=== PATIENT | female | born 1980 | race Two or more races ===

== ENCOUNTER 2024-04-08 18:44 | Emergency (ER) | payer MEDICAID, OTHER ==
[~2024-04-08] VITALS: Ht 162.6 cm; Wt 68.3 kg
[2024-04-08] MEDS ORDERED: AZIT-43 PO (20:14)
[2024-04-08] MEDS ORDERED: PRED20TA2 PO (20:14)
[2024-04-08] MEDS ORDERED: ACET500T58 PO (20:14)
--- NOTE | 2024-04-08 20:14 | ED.PDOC ---
History of Present Illness HPI Comments 43-year-old female presents to ER with complaints of flu-like symptoms x2 days. Patient reports that she has been experiencing productive cough with green phlegm, intermittent fever and intermittent body aches x2 days. Reports that she last took [id number]-yjawlzy NyQuil 2 hours prior to arrival to ER. Patient presents to ER afebrile, ambulatory, with steady gait, in no distress. She currently complains of 6/10 body aches pain, denying any other pain and reports exposure to sick contacts at work. 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 Family History Family History: Unknown Social History Smoker: Non-Smoker Alcohol: Denies ETOH Use Drugs: Denies Drug Use Lives In: Home Constitutional: See HPI EENTM: See HPI Respiratory: See HPI Cardiovascular: No Symptoms Reported Gastrointestinal: No Symptoms Reported Genitourinary: No Symptoms Reported Neurological: No Symptoms Reported Musculoskeletal: No Symptoms Reported Integumentary: No Symptoms Reported Allergic/Immunocompromised: others (DENIES) Hematologic/Lymphatic: No Symptoms Reported Endocrine: No Symptoms Reported Psychiatric: No symptoms Reported Physical Exam General Appearance: No Apparent Distress HEENT: Normal ENT Inspection, PERRL/EOMI, Pharynx Normal, TMs Normal Neck: Full Range of Motion, Non-Tender, Normal Respiratory: Chest Non-Tender, Lungs Clear, No Accessory Muscle Use, No Respiratory Distress, Normal Breath Sounds Cardiovascular: No Murmur, No Gallop, Regular Rate/Rhythm Breast Exam: Deferred Gastrointestinal: NOT DONE Genitalia: Deferred Pelvic: Deferred Rectal: Deferred Extremities: Normal capillary refill, Normal range of motion Neurologic: Alert, 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 Was a procedure done?: No Sedation Sedation?: No Fever Differential Dx Differential Diagnosis: Pneumonia, Sepsis, Other (COVID-19) X-Ray, Labs, Meds, VS Vital Signs Date Time Temp Pulse Resp B/P (MAP) Pulse Ox O2 Delivery O2 Flow Rate FiO2 04/08/24 20:00 97 Room Air 0 04/08/24 18:55 99.3 103 16 126/86 (99) 97 Lab Test 04/08/24 20:01 Range/Units Influenza Type A Antigen Pending Influenza Type B Antigen Pending SARS-CoV-2 Antigen (Rapid) Negative NEGATIVE Influenza A reviewed- positive Influenza B reviewed - negative [place] reviewed - negative Patient tolerating p.o. intake well and in no distress during ER visit/prior to discharge Advised to drink plenty plenty fluids Advised to f/u with PCP in 1-2 days Patient verbalized understanding and agreeable with current plan of care Advised to return to ER immediately if symptoms worsen Time of 1ST Reevaluation: 19:54 Reevaluation 1ST: N/A Patient Education/Counseling: Diagnosis, Treatment, Prognosis, Need For Follow Up Family Education/Counseling: No Family Present Departure 1 Departure Time of Disposition: 20:12 Impression: Primary Impression: Upper respiratory infection Qualified Codes: J06.9 - Acute upper respiratory infection, unspecified Additional Impression: Influenza A Disposition: 01 HOME / SELF CARE / HOMELESS Condition: Stable e-Prescriptions Oseltamivir Phosphate (Tamiflu) 75 Mg Cap 1 CAP PO BID for 5 Days, #10 CAP 0 Refills Prov: IVAN BLAKE 04/08/24 Prednisone (Prednisone) 20 Mg Tab 20 MG PO BID for 5 Days, #10 TAB 0 Refills Prov: IVAN BLAKE 04/08/24 Acetaminophen (Acetaminophen) 500 Mg Tab 500 MG PO Q4HPRN, #30 TAB 0 Refills Prov: IVAN BLAKE 04/08/24 Azithromycin (Azithromycin) 250 Mg Tab 250 MG PO DAILY MDD 500 for 5 Days, #6 TAB 0 Refills 2 TABLETS ORALLY ON DAY ONE, THEN 1 TABLET ORALLY DAILY FOR 4 DAYS Prov: IVAN BLAKE 04/08/24 Discharged With: Self Critical Care Note Critical Care Time?: No Stability Stability form required: No Heart Score Heart Score: Heart Score Response (Comments) Value History N/A 0 EKG N/A 0 Age N/A 0 Risk Factors N/A 0 Troponin N/A 0 Total 0 IVAN BLAKE Apr 08, 2024 20:14
[2024-04-08 21:35] LABS: COVID19 ANTIGEN SOFIA FIA NEGATIVE (NEGATIVE)
[2024-04-08 21:39] LABS: Rapid Influenza A Positive (Negative); Rapid Influenza B Negative (Negative)
[2024-04-08] MEDS ORDERED: OSEL75CA5 PO (21:41)
[2024-04-08 22:04] VITALS: BP 127/88; PULSE 99; RESP 16; TEMP 99.7; O2SAT 97
== END 2024-04-08 22:07 | disposition home or self-care (01) ==
LOC: ER 18:44
DX: J10.1 Influenza due to other identified influenza virus with other respiratory manifestations (principal); Z20.822 Contact with and (suspected) exposure to COVID-19; Z98.890 Other specified postprocedural states
CPT/HCPCS: 36415; 87426; 87804

== ENCOUNTER 2024-11-01 13:45 | Emergency (ER) | payer MEDICAID ==
[~2024-11-01] VITALS: Ht 160 cm; Wt 81.8 kg
[~2024-11-01 13:45] MED LIST: ACET500T58 PO; AZIT-43 PO; OSEL75CA5 PO; PRED20TA2 PO
--- NOTE | 2024-11-01 14:04 | ED.PDOC ---
GI ASSESSMENT HPI Comments HPI: 44 year old female presents to the emergency department via EMS with a chief complaint of nausea/vomiting/diarrhea onset today (11/01/24). Per EMS, patient was donating plasma when she began experiencing N/V/D, 911 was called. Upon EMS arrival, patient was bradycardiac, HR 30s, hypotensive with BP 90/52, 500 mL fluids was given, HR increased to 45, BP increased to 100/62. In route to ED, BP dropped to 87/43, another 500 mL fluids was given, BP improved to 111/72, Atropine was given prior to ED arrival. Patient states her last plasma donation was on Monday, has donating 3 times total. Patient states had no symptoms prior to donation, in the process she began experiencing nausea/vomiting about 5 episodes, 1 episode of yellow diarrhea. Patient also states she is on her menstrual cycle, has been experiencing cramps due to menstrual. No other symptoms or modifying factors present at this time. Initial Vitals BP: 114/79 HR: 100 RR: 18 O2: 97% Temp: 98.8 F Past Medical History: bradycardia, hypotension Past Surgical History: x2 Social History: Denies ETOH, smoking, and drug use. Medications: Denies Allergies: NKDA HPI: Poor Historian. REVIEW OF SYSTEMS: CONSTITUTIONAL: Denies acute: fever, diaphoresis, chills, HEAD: Denies acute: headache, photophobia Eyes: Denies acute: Double vision, vision loss, eye pain, eye discharge. EARS: Denies acute: tinnitus, hearing loss, ear discharge, ear pain, THROAT: Denies acute: sore throat, swelling, difficulty swallowing , pain with swallowing, change in voice. NECK: Denies acute: neck pain, neck swelling, stiff neck. HEART: Denies acute : chest pain, palpitations, LUNGS: Denies acute: SOB, wheezing, cough, hemoptysis ABDOMEN: Denies acute: abdominal pain, melena , hematemesis, hematochezia SKIN: Denies acute: rash, redness, lesions, itchiness. EXTREMITIES: Denies acute: calf pain, numbness, tingling, weakness, denies pain in extremity. Denies acute: Low back pain. Neuro: Denies acute: focal neurological deficit, motor or sensory focal neurological deficit, tremors, seizure like activity, confusion, dizziness, change in mental status, loss of bowel or bladder function, cauda equina like symptoms. : Denies acute: dysuria, hematuria, flank pain, increase in urinary frequency. PSYCH: Denies acute: hallucination, suicidal ideation, homicidal ideation. FEMALE: Denies acute: abnormal vaginal bleeding, foul odor, unusual discharge. PHYSICAL EXAM: General: ----no---acute distress, awake and alert. Head: normocephalic, atraumatic. Neck: supple, trachea is midline, no swelling. Throat: Normal phonation. Eyes:, no erythema, no purulent discharge, no proptosis, no icterus. Heart: regular rate, regular rhythm, no significant murmur appreciated. Lungs: no apparent respiratory distress, Able to speak in full sentences. No wheezing, no rhonchi, no crackles. No stridors Clear to auscultation bilaterally. Abdomen: non tender to palpation, non distended, soft, no guarding, no rebound, + bowel sounds. Neuro: Awake, Alert, oriented to name, self, situation, follows commands GCS=15. Speech is normal. Skin: no petechia, no purpura, no cyanosis, non-pale, not jaundice. Lower extremities: --no - Pitting edema no deformity, no focal swelling, no calf TTP. Makes eye contact. moves all four extremities. Face: no apparent facial droop. Ambulating in the ED independently. PERRLA, EOM-I CN 2-12 are grossly intact, No nystagmus. No nuchal rigidity, Kernig's sign, Brudzinski's sign, no meningeal signs. ED COURSE: DISCLAIMER: This medical document was created using an electronic medical record system with voice recognition software and computerized dictation system. Although this document has been carefully reviewed, there might still be some phonetic and typographical errors. Occasional wrong-word or "sound-alike" substitutions may have occurred due to the inherent limitations of voice recognition software. These areas are purely typographical due to imperfections of the software programs and do not reflect any compromise in the patient's medical care. Please read the chart carefully and recognize, using context, where these substitutions have occurred. Time Seen by MD: 13:55 Primary Care Provider: UNKNOWN Reviewed Notes: Medications, Allergies Allergies: Coded Allergies: NO KNOWN ALLERGIES (Unverified , 04/08/24) Home Meds Active Scripts Oseltamivir Phosphate (Tamiflu) 75 Mg Cap, 1 CAP PO BID for 5 Days, #10 CAP 0 Refills Prov:IVAN BLAKE 04/08/24 Prednisone (Prednisone) 20 Mg Tab, 20 MG PO BID for 5 Days, #10 TAB 0 Refills Prov:IVAN BLAKE 04/08/24 Acetaminophen (Acetaminophen) 500 Mg Tab, 500 MG PO Q4HPRN, #30 TAB 0 Refills Prov:IVAN BLAKE 04/08/24 Azithromycin (Azithromycin) 250 Mg Tab, 250 MG PO DAILY MDD 500 for 5 Days, #6 TAB 0 Refills 2 TABLETS ORALLY ON DAY ONE, THEN 1 TABLET ORALLY DAILY FOR 4 DAYS Prov:IVAN BLAKE 04/08/24 Information Source: Patient Mode of Arrival: EMS Timing: Hours Duration: Since onset Prehospital treatment: IVF, Other (atropine) Quality: Colicky Stool: Yellow Severity: Moderate Recent: None Recent Hx of: None Modifying Factors: Nothing Associated sign and symptoms: Nausea, Vomiting, Diarrhea, Other Past Medical History PAST MEDICAL HISTORY: Hypotension Past Medical History (Other): bradycardia 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 Was a procedure done?: No X-Ray, Labs, Meds, VS Vital Signs Date Time Temp Pulse Resp B/P (MAP) Pulse Ox O2 Delivery O2 Flow Rate FiO2 11/01/24 17:15 61 100 Room Air 11/01/24 17:15 98.4 61 14 99/61 (74) 100 98.4 11/01/24 15:24 67 18 98/57 (71) 11/01/24 14:02 94 11/01/24 13:55 98.8 100 18 114/79 (91) 97 98.8 Lab Test 11/01/24 17:34 11/01/24 15:08 11/01/24 14:14 11/01/24 14:13 Range/Units Lactic Acid Level 1.1 2.8 *H 0.4-2.0 mmol/L Troponin I High Sensitivity < 3 L < 3 L < 3 L </=34 ng/L White Blood Count 13.1 H 4.4-10.8 10^3/uL Red Blood Count 4.70 4.0-5.20 10^6/uL Hemoglobin 14.0 12.2-16.2 g/dL Hematocrit 43.5 36.0-46.0 % Mean Corpuscular Volume 92.4 80.0-100.0 fL Mean Corpuscular Hemoglobin 29.8 28.0-32.0 pg Mean Corpuscular Hemoglobin Concent 32.3 32.0-36.0 g/dL Red Cell Distribution Width 13.9 11.8-14.3 % Platelet Count 220 140-450 10^3/uL Mean Platelet Volume 6.9 6.9-10.8 fL Neutrophils (%) (Auto) 84.2 H 37.0-80.0 % Lymphocytes (%) (Auto) 11.0 10.0-50.0 % Monocytes (%) (Auto) 4.2 0.0-12.0 % Eosinophils (%) (Auto) 0.4 0.0-7.0 % Basophils (%) (Auto) 0.2 0.0-2.0 % Neutrophils # (Auto) 11.1 H 1.6-8.6 10 ^3/uL Lymphocytes # (Auto) 1.4 0.4-5.4 10 ^3/uL Monocytes # (Auto) 0.6 0-1.3 10 ^3/uL Eosinophils # (Auto) 0.1 0-0.8 10 ^3/uL Basophils # (Auto) 0 0-0.2 10 ^3/uL Nucleated Red Blood Cells 0.0 % Sodium Level 143 136-145 mmol/L Potassium Level 4.0 3.5-5.1 mmol/L Chloride Level 113 H 98-107 mmol/L Carbon Dioxide Level 23 20-31 mmol/L Anion Gap 7 5-15 Blood Urea Nitrogen 9 9-23 mg/dL Creatinine 0.69 0.550-1.02 mg/dL Glomerular Filtration Rate Calc 110 >90 mL/min BUN/Creatinine Ratio 13.0 10.0-20.0 Serum Glucose 92 74-106 mg/dL Calcium Level 8.1 L 8.7-10.4 mg/dL Total Bilirubin 0.5 0.2-1.0 mg/dL Aspartate Amino Transferase (AST) 19 13-40 U/L Alanine Aminotransferase (ALT) 9 7-40 U/L Alkaline Phosphatase 46 46-116 U/L Total Protein 5.5 L 5.7-8.2 g/dL Albumin 3.6 3.2-4.8 g/dL Lipase 28 12-53 U/L Urine Color Colorless Yellow Urine Clarity Clear Clear Urine pH 5.0 5.0-9.0 Urine Specific [place] 1.013 1.001-1.035 Urine Protein Negative Negative Urine Ketones Trace Negative Urine Blood 3+ H Negative /uL Urine Nitrite Negative Negative Urine Bilirubin Negative Negative Urine Urobilinogen Normal Negative mg/dL Urine Leukocyte Esterase Negative Negative /uL Urine RBC 1 0 - 4 /hpf Urine Microscopic WBC < 1 0-5 /HPF Urine Squamous Epithelial Cells Few <5 /hpf Urine Bacteria Few H None Seen /hpf Urine Mucus Few None Seen Urine Glucose Normal Normal mg/dL Urine Test Negative Negative Current Medications Medications (Trade) Dose Ordered Sig/Zachery Route Start Time Stop Time Status Last Admin Sodium Chloride 1,000 ml @ 1,000 mls/hr Q1H ONCE IV 11/01/24 14:00 11/01/24 14:59 DC 11/01/24 14:16 Time of 1ST Reevaluation: 14:25 Reevaluation 1ST: Unchanged Patient Education/Counseling: Diagnosis, Treatment Family Education/Counseling: No Family Present Comments Patient nontoxic in appearance. Patient has baseline blood pressure is in the 90s systolically. Patient had no nausea or vomiting here in the ED. this is likely due to being a plasma donor repeatedly most recently two days ago. Her body did not have enough time to recover. Departure 1 Departure Time of Disposition: 18:22 Impression: Primary Impression: Nausea vomiting and diarrhea Additional Impressions: Generalized weakness Plasma donor Disposition: 01 HOME / SELF CARE / HOMELESS Condition: Stable Additional Instructions: Additional instructions: You MUST follow-up with your primary care/family doctor in 1 to 2 days. If you are unable to see your primary care/family doctor, please return to our emergency room for re-assessment and re-evaluation in 1 to 2 days. Return to the emergency room here in our facility or to the nearest ER [facility] if your symptoms change or worsen. CONSULTATIONS: you MUST Follow-up for consultation as soon as possible with: Dr. RESENDIZ and cardiology in 1-2 days. Please call for appointment. You MUST call the consultants office yourself to make an appointment. You may need to arrange that through your insurance and/or your primary/family doctor. If you are unable to see the web consultant in 1 to 2 days, you must return to our emergency room (or any other ER of your choice) for re-assessment and re- evaluation. Adequate fluid hydration. Monitoring blood pressure at home at least 3 times a day. Please do not donate any blood products or plasma for at least two more weeks. Discharged With: Self Critical Care Note Critical Care Time?: No I personally scribed for ALESSANDRA MATT DO ([email or web address]) on 11/01/24 at 14:04. Electronically submitted by Melisa Marinelli ([email or web address]). I personally scribed for ALESSANDRA MATT DO ([email or web address]) on 11/01/24 at 14:11. Electronically submitted by Melisa Marinelli ([email or web address]). ALESSANDRA MATT DO Nov 01, 2024 14:04
[2024-11-01] MEDS: SODIUM CHLORIDE 0.9% 1,000 ML IV ONE (14:16)
[2024-11-01 14:22] LABS: Hematocrit 43.5 % (36.0-46.0); Hemoglobin 14.0 g/dL (12.2-16.2); Mean Corpuscular Hemoglobin 29.8 pg (28.0-32.0); Mean Corpuscular Volume 92.4 fL (80.0-100.0); Nucleated Red Blood Cells % 0.0 %
[2024-11-01 14:38] LABS: Alanine Aminotransferase 9 U/L (7-40); Albumin 3.6 g/dL (3.2-4.8); Alkaline Phosphatase 46 U/L (46-116); Anion Gap 7 (5-15); BUN/Creatinine Ratio 13.0 (10.0-20.0); Bilirubin, Total 0.5 mg/dL (0.2-1.0); Blood Urea Nitrogen 9 mg/dL (9-23); Calcium 8.1 mg/dL (8.7-10.4); Carbon Dioxide 23 mmol/L (20-31); Chloride 113 mmol/L (98-107); Glucose 92 mg/dL (74-106); Lipase 28 U/L (12-53); Potassium 4.0 mmol/L (3.5-5.1); Sodium 143 mmol/L (136-145); Total Protein 5.5 g/dL (5.7-8.2)
[2024-11-01 14:39] LABS: Lactic Acid w/Reflex 2.8 mmol/L (0.4-2.0)
[2024-11-01 16:09] LABS: Urine Protein, UAD Negative (Negative)
[2024-11-01 18:35] VITALS: BP 98/66; PULSE 54; RESP 16; TEMP 98; O2SAT 100
--- NOTE | 2024-11-01 21:14 | ECG ---
[facility] Test Date: 2024-11-01 Test Time: 14:02:36 Pat Name: VIOLETTA ESCAMILLA Department: ED Room: Gender: F Patent Paralegal: arcelia : 1980 Requested By: ALESSANDRA MATT Order Number: [id number] Reading MD: Jan Feng Measurements Intervals [place] Rate: 94 P: 50 GA: 149 QRS: 33 QRSD: 78 T: 25 QT: 364 QTc: 456 Interpretive Statements Sinus rhythm Low voltage, precordial leads Borderline T abnormalities, anterior leads Electronically Signed On 11-04-2024 18:41:37 PDT by Jan Feng Please click the below link to view image of tracing.
== END 2024-11-01 18:36 | disposition home or self-care (01) ==
LOC: ER 13:45 → EDBD 13:45 → ER 18:36
DX: R11.2 Nausea with vomiting, unspecified (principal); R19.7 Diarrhea, unspecified; R53.1 Weakness; I95.9 Hypotension, unspecified; Z98.890 Other specified postprocedural states; Z79.899 Other long term (current) drug therapy
CPT/HCPCS: 36415; 80053; 81001; 81025; 83605; 83690; 84484; 85025; 93005; 99284; J7030